=== PATIENT | female | born 1975 | race Caucasian/White ===

== ENCOUNTER 2019-08-12 14:46 | Emergency (ER) | payer OTHER ==
[~2019-08-12] VITALS: Ht 160 cm; Wt 97.1 kg
[2019-08-12] MEDS ORDERED: SYNTHROID50 MCG (15:10)
[2019-08-12] MEDS ORDERED: PROTONIX40 MG (15:10)
== END 2019-08-12 19:12 | disposition home or self-care (01) ==
LOC: ER 14:46
DX: S00.03XA Contusion of scalp, initial encounter (principal); S00.33XA Contusion of nose, initial encounter; S20.212A Contusion of left front wall of thorax, initial encounter; M54.2 Cervicalgia; R04.0 Epistaxis; M79.605 Pain in left leg; M79.604 Pain in right leg; V49.88XA Car occupant (driver) (passenger) injured in other specified transport accidents, initial encounter; Y93.89 Activity, other specified; Y92.488 Other paved roadways as the place of occurrence of the external cause; Y99.8 Other external cause status

== ENCOUNTER 2021-03-29 08:00 | Outpatient (CLI) | payer OTHER ==
[~2021-03-29 08:00] MED LIST: DOLOGESIC 500-1 EACH PO; PROTONIX40 MG; SYNTHROID50 MCG
== END 2021-03-29 08:30 | disposition home or self-care (01) ==
LOC: PPH VACUNA 08:00
DX: Z23 Encounter for immunization (principal)

== ENCOUNTER 2021-04-19 08:00 | Outpatient (CLI) | payer OTHER | END 2021-04-19 08:30 | disposition home or self-care (01) | LOC: PPH VACUNA 08:00 | DX: Z23 Encounter for immunization (principal) ==